=== PATIENT | female | born 1965 | race Caucasian/White ===

== ENCOUNTER 2018-07-31 17:37 | Emergency (ER) | payer SELFPAY ==
--- NOTE | 2018-07-31 18:34 | ER Document Report ---
ED Medical Screen (RME) - General Chief Complaint: Vaginal Discharge Stated Complaint: VAGINAL DISCOMFORT Time Seen by Provider: 07/31/18 18:26 Notes: 53-year-old female with lupus, fibromyalgia, hypothyroidism presents emergency department chief complaint of female issues x2 months. She states that she has had a foul order from her vagina with no abnormal discharge or abdominal pain. No fevers. She does complain of urinary urgency and frequency but no dysuria. Denies flank pain. Is sexually active. Last menstrual period 10 years ago. I have greeted and performed a rapid initial assessment of this patient. A comprehensive ED assessment and evaluation of the patient, analysis of test results and completion of medical decision making process will be conducted by an additional ED providers. TRAVEL OUTSIDE OF THE [place] IN LAST 30 DAYS: No - Related Data Allergies/Adverse Reactions: clindamycin Allergy (Verified 07/31/18 17:38) Past Medical History - Social History Frequency of alcohol use: None Drug Abuse: None Renal/ Medical History: Denies: Hx Peritoneal Dialysis Psychiatric Medical History: Reports: Hx Bipolar Disorder Past Surgical History: Reports: Hx Cholecystectomy, Hx Tonsillectomy, Hx Tubal Ligation Physical Exam - Vital signs Vitals: Temp Pulse Resp BP Pulse Ox 98 F 91 18 116/68 95 07/31/18 17:39 07/31/18 17:39 07/31/18 17:39 07/31/18 17:39 07/31/18 17:39 Course - Vital Signs Vital signs: Temp Pulse Resp BP Pulse Ox 98 F 91 18 116/68 95 07/31/18 17:39 07/31/18 17:39 07/31/18 17:39 07/31/18 17:39 07/31/18 17:39
[2018-07-31 19:11] LABS: APPEARANCE,URINE SLIGHTLY-CLOUDY; BILIRUBIN,URINE NEGATIVE (NEGATIVE); COLOR,URINE YELLOW; GLUCOSE, URINE NEGATIVE (NEGATIVE); KETONES,URINE NEGATIVE (NEGATIVE); LEUKOCYTE ESTERASE,URINE TRACE (NEGATIVE); NITRITE,URINE NEGATIVE (NEGATIVE); PROTEIN,URINE NEGATIVE (NEGATIVE); URINE SPECIFIC GRAVITY 1.014; UROBILINOGEN,URINE NEGATIVE mg/dL (<2.0)
--- NOTE | 2018-07-31 20:20 | ER Document Report ---
ED General - General Chief Complaint: Vaginal Discharge Stated Complaint: VAGINAL DISCOMFORT Time Seen by Provider: 07/31/18 18:26 Notes: Patient is a 53-year-old female who presents emergency department with a chief complaint of vaginal discharge. She states that she has had vaginal discharge for the past 2 months. She says the discharge really does not bother her, but the odor does. States that it smells like "rotten eggs." She is sexually active and states she is monogamous. She states her partner is monogamous. Patient states that she sometimes gets these infections after she shaves. She did currently shave. Patient states that she went into early menopause about 12 years ago due to stress. Past medical history includes hypothyroidism, lupus, fibromyalgia, and bipolar disorder. States she is currently taking her medications as prescribed. She has not recently been on any antibiotics. Denies any abdominal pain, dysuria, dyspareunia, or any other symptoms. TRAVEL OUTSIDE OF THE [place] IN LAST 30 DAYS: No - Related Data Allergies/Adverse Reactions: clindamycin Allergy (Verified 07/31/18 17:38) Past Medical History - Social History Smoking Status: Current Every Day Smoker Frequency of alcohol use: None Drug Abuse: None Family History: Reviewed & Not Pertinent Patient has suicidal ideation: No Patient has homicidal ideation: No Renal/ Medical History: Denies: Hx Peritoneal Dialysis Psychiatric Medical History: Reports: Hx Bipolar Disorder Past Surgical History: Reports: Hx Cholecystectomy, Hx Tonsillectomy, Hx Tubal Ligation Review of Systems - Review of Systems Notes: REVIEW OF SYSTEMS: CONSTITUTIONAL : Denies recent illness. Denies recent unintentional weight loss. Denies fever, chills, or sweats. EENT: Denies eye, ear, throat, or mouth pain, discharge, or symptoms. Denies nasal or sinus congestion. CARDIOVASCULAR: Denies chest pain. RESPIRATORY: Denies shortness of breath, cough, congestion, difficulty breathing, or wheezing. GASTROINTESTINAL: Denies nausea, vomiting, and diarrhea. Denies abdominal pain. Denies constipation. Last BM: GENITOURINARY: Denies difficulty urinating, burning, blood in urine, urgency or frequency. FEMALE GENITOURINARY: See HPI MUSCULOSKELETAL: Denies neck and back pain. Denies joint pain or swelling. SKIN: Denies rash, itchiness, or lesions HEMATOLOGIC : Denies easy bruising or bleeding. LYMPHATIC: Denies swollen, painful, enlarged glands. NEUROLOGICAL: Denies no numbness or tingling denies weakness. Denies headache. Denies altered mental status. Denies alteration in speech. PSYCHIATRIC: Denies stress, anxiety, alteration in sleep patterns, or depression. All other systems reviewed and negative. Physical Exam - Vital signs Vitals: Temp Pulse Resp BP Pulse Ox 98 F 91 18 116/68 95 07/31/18 17:39 07/31/18 17:39 07/31/18 17:39 07/31/18 17:39 07/31/18 17:39 - Notes Notes: PHYSICAL EXAMINATION: GENERAL: Appears well, healthy, well-nourished, no acute distress. HEAD: Normocephalic, atraumatic. EYES: PERRL, conjunctiva normal, all extraocular movements intact, sclera nonicteric ENT: Moist mucous membranes. NECK: Supple, no noticeable swelling, redness, rash. Normal range of motion. LUNGS: Equal breath sounds bilaterally and clear to auscultation. No wheezes rales or rhonchi. CARDIOVASCULAR: S1-S2, regular rate, regular rhythm. Radial pulses 2+, normal. ABDOMEN: Normoactive bowel sounds. Soft, nontender, no guarding, no rebound tenderness, and no masses palpated. EXTREMITIES: Normal strength and range of motion, no pitting or edema. No cyanosis. NEUROLOGICAL: Moves all extremities upon command. Strength 5/5 in all extremities. PSYCH: Tearful, appears anxious. SKIN: Warm, dry. No rash, lesions, ulcerations noted. Normal skin turgor. 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 Course - Re-evaluation Re-evalutation: 07/31/18 20:40 Pelvic exam done with my read, PCT at bedside. Patient did have foul odor and cervical motion tenderness. She will be sent for a transvaginal ultrasound to rule out tubo-ovarian abscess. Her urinalysis is unremarkable. Wet mount was sent. Folliculitis noted from patient shaving. A very low suspicion for appendicitis, ectopic , or any life-threatening etiology at this time. 07/31/18 21:40 Patient's ultrasound is negative for a tubo-ovarian abscess. She will be started on doxycycline and Flagyl for pelvic inflammatory disease from bacterial vaginosis. I discussed this with the patient. Follow-up precautions were given. Verbal discharge instructions were given to the patient. They verbalized understanding. They are stable for discharge. - Vital Signs Vital signs: Temp Pulse Resp BP Pulse Ox 97.5 F 78 18 117/63 100 07/31/18 22:07 07/31/18 22:07 07/31/18 22:07 07/31/18 22:07 07/31/18 22:07 - Laboratory Laboratory results interpreted by me: 07/31/18 18:50 Ur Leukocyte Esterase TRACE H Discharge - Discharge Clinical Impression: Bacterial vaginosis, Pelvic inflammatory disease Condition: Stable Disposition: HOME, SELF-CARE Additional Instructions: You are seen today in the emergency department for vaginal discharge. You have bacterial vaginosis and pelvic inflammatory disease. You are being placed on antibiotics. Please finish all your antibiotics as prescribed. Follow-up with your primary care provider as needed. If you develop a fever, pelvic pain, or have any symptoms that are worrisome to you, return to the emergency department. Prescriptions: Doxycycline Hyclate 100 mg PO BID #28 capsule Metronidazole [Flagyl 500 mg Tablet] 500 mg PO Q6H #28 tablet
[2018-07-31 20:47] LABS: BACTERIA (WET MOUNT) 3+ BACTERIA SEEN; EPITHELIALS (WET MOUNT) 4+ EPITHELIALS SEEN; RBCS (WET MOUNT) NO RBCS SEEN; T.VAGINALIS (WET MOUNT) NO TRICHOMONAS SEEN; WBCS (WET MOUNT) 1+ WBCS SEEN; YEAST (WET MOUNT) NO YEAST SEEN
[2018-07-31 21:23] LABS: CHLAM PCR NOT DETECTED (NOT DETECT)
--- NOTE | 2018-07-31 21:36 | RADIOLOGY REPORT (SQ) ---
EXAM DESCRIPTION: U/S NON OB PEL TV W/DOPPLER RadLex: US PELVIS TRANSVAGINAL CLINICAL HISTORY: 53 years Female; pelvic pain; vaginal discharge TECHNIQUE: Transabdominal and endovaginal pelvic ultrasound was performed. COMPARISON: None. FINDINGS: Uterus: 5.9 x 2.9 x 3.9 cm, with 5 mm endometrial stripe. No uterine masses. Right ovary: Could not be visualized using transabdominal or transvaginal technique. Left ovary: Could not be visualized using transabdominal or transvaginal technique. No free fluid IMPRESSION: 1. Normal uterus. 2. Ovaries could not be visualized.
[2018-07-31] MEDS ORDERED: DOXYCYCLINE HYCLATE 100 MG TABLET PO ONE (21:43)
[2018-07-31] MEDS ORDERED: METRONIDAZOLE 500 MG TABLET PO ONE (21:43)
[2018-07-31 22:08] VITALS: BP 117/63
== END 2018-07-31 22:10 | disposition home or self-care (01) ==
LOC: ER 17:37
DX: N73.9 Female pelvic inflammatory disease, unspecified (principal); N76.0 Acute vaginitis; B96.89 Other specified bacterial agents as the cause of diseases classified elsewhere; L73.9 Follicular disorder, unspecified; F17.200 Nicotine dependence, unspecified, uncomplicated; Z88.1 Allergy status to other antibiotic agents
CPT/HCPCS: 76830; 81001; 81025; 87210; 87491; 87591; 93976; 99284

== ENCOUNTER 2018-08-15 15:34 | Emergency (ER) | payer SELFPAY ==
[2018-08-15 16:53] LABS: ABSOLUTE BASOPHILS # (AUTO) 0.1 10^3/uL (0.0-0.2); ABSOLUTE EOSINOPHILS # (AUTO) 0.2 10^3/uL (0.0-0.6); ABSOLUTE LYMPHOCYTES (AUTO) 1.9 10^3/uL (0.5-4.7); ABSOLUTE MONOCYTES (AUTO) 0.8 10^3/uL (0.1-1.4); ABSOLUTE NEUT (AUTO) 2.5 10^3/uL (1.7-8.2); EOSINOPHILS % (AUTO) 3.4 % (0-6); HEMATOCRIT 39.6 % (36.0-47.0); HEMOGLOBIN 13.3 g/dL (12.0-15.5); LYMPHOCYTES % (AUTO) 34.7 % (13-45); MEAN CORPUSCULAR HEMOGLOBIN 29.9 pg (27.0-33.4); MEAN CORPUSCULAR HGB CONC 33.6 g/dL (32.0-36.0); MEAN CORPUSCULAR VOLUME 89 fl (80-97); MONOCYTES % (AUTO) 14.3 % (3-13); PLATELET COUNT 260 10^3/uL (150-450); RED BLOOD COUNT 4.45 10^6/uL (3.72-5.28); RED CELL DISTRIBUTION WIDTH 14.4 % (11.5-14.0); SEGMENTED NEUTROPHILS % (AUTO) 46.6 % (42-78); TOTAL CELLS COUNTED % (AUTO) 100 %; WHITE BLOOD COUNT 5.3 10^3/uL (4.0-10.5)
[2018-08-15 17:13] LABS: ALANINE AMINOTRANSFERASE 28 U/L (9-52); ALBUMIN 3.6 g/dL (3.5-5.0); ALKALINE PHOSPHATASE 48 U/L (38-126); ANION GAP 5 (5-19); ASPARTATE AMINO TRANSFERASE 24 U/L (14-36); BILIRUBIN,DIRECT 0.2 mg/dL (0.0-0.4); BILIRUBIN,TOTAL 0.3 mg/dL (0.2-1.3); BLOOD UREA NITROGEN 11 mg/dL (7-20); CALCIUM 9.5 mg/dL (8.4-10.2); CARBON DIOXIDE 27 mmol/L (22-30); CHLORIDE 108 mmol/L (98-107); GLUCOSE 98 mg/dL (75-110); POTASSIUM 3.6 mmol/L (3.6-5.0); SODIUM 140.2 mmol/L (137-145); TOTAL PROTEIN 5.9 g/dL (6.3-8.2)
[2018-08-15 17:15] LABS: ACETAMINOPHEN < 10 ug/mL (10-30); ALCOHOL < 10 mg/dL (NONE DETECTED); SALICYLATE < 1.0 mg/dL (2.0-20.0)
[2018-08-15 17:34] LABS: APPEARANCE,URINE HAZY; BILIRUBIN,URINE SMALL (NEGATIVE); COLOR,URINE AMBER; GLUCOSE, URINE NEGATIVE (NEGATIVE); KETONES,URINE NEGATIVE (NEGATIVE); PROTEIN,URINE 30 mg/dL (NEGATIVE)
[2018-08-15 17:35] LABS: LEUKOCYTE ESTERASE,URINE TRACE (NEGATIVE); NITRITE,URINE NEGATIVE (NEGATIVE); UROBILINOGEN,URINE NEGATIVE mg/dL (<2.0)
[2018-08-15 17:50] LABS: URINE AMPHETAMINES SCREEN NEGATIVE; URINE BARBITURATES SCREEN NEGATIVE; URINE BENZODIAZEPINES SCREEN NEGATIVE; URINE COCAINE SCREEN NEGATIVE; URINE MARIJUANA (THC) SCREEN UNCONFIRMED POSITIVE; URINE METHADONE SCREEN NEGATIVE; URINE PHENCYCLIDINE SCREEN NEGATIVE
--- NOTE | 2018-08-15 18:24 | RADIOLOGY REPORT (SQ) ---
EXAM DESCRIPTION: CT HEAD WITHOUT COMPLETED DATE/TIME: 08/15/2018 6:00 pm REASON FOR STUDY: ams COMPARISON: None. TECHNIQUE: Axial images acquired through the brain without intravenous contrast. Images reviewed wit h bone, brain and subdural windows. Images stored on PACS. All CT scanners at this facility use dose modulation, iterative reconstruction, and/or weight based d osing when appropriate to reduce radiation dose to as low as reasonably achievable (ALARA). [facility]: Dose Right [facility]: CareDose [facility]: Dose Right [facility]: Teradose 4D [facility]: Smart [employer] RADIATION DOSE: CT Rad equipment meets quality standard of care and radiation dose reduction techniq ues were employed. CTDIvol: 53.2 mGy. DLP: 1017 mGy-cm.. LIMITATIONS: Mild motion. FINDINGS: VENTRICLES: Normal size and contour. CEREBRUM: No masses. No hemorrhage. No midline shift. Age appropriate white matter. No evidence for a cute infarction. CEREBELLUM: No masses. No hemorrhage. No alteration of density. No evidence for acute infarction. EXTRA-AXIAL SPACES: No fluid collections. ORBITS AND GLOBE: No intra- or extraconal masses. Normal contour of globe without masses. CALVARIUM: No fracture. PARANASAL SINUSES: No fluid or mucosal thickening. SOFT TISSUES: No mass or hematoma. OTHER: No other significant finding. IMPRESSION: NO ACUTE INTRACRANIAL FINDINGS. EVIDENCE OF ACUTE STROKE: NO. TECHNICAL DOCUMENTATION: JOB ID: [id number] Quality ID # [id number]: Final reports with documentation of one or more dose reduction techniques (e.g., Au tomated exposure control, adjustment of the mA and/or kV according to patient size, use of iterative reconstruction technique) 2010 [employer]- All Rights Reserved Reading location - IP/workstation name: [email or web address]
--- NOTE | 2018-08-15 19:03 | ER Document Report ---
Addendum entered and electronically signed by PEYTON PATEL MD 08/16/18 13:23: Discharge - Discharge Clinical Impression: Confusion, Hallucination, Hx of bipolar disorder, Nonadherence to medication Altered mental status Qualifiers: Altered mental status type: unspecified Qualified Code(s): R41.82 - Altered mental status, unspecified Condition: Stable Disposition: HOME, SELF-CARE Additional Instructions: You have been evaluated by both medical and behavioral health providers while in the emergency department. You have been cleared from both acute medical and psychiatric services. It is felt your not having access to your medications (mental health and medical) for the last 3-4 days may be related to altered/confused state. 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 You were provided with a copy of the information they faxed. You should get these medications and start taking them immediately. You have also been provided with information for free to low cost medical services in [facility]. Altered Mental Status An altered mental status is a change in the normal functioning of the brain. This alteration of function can range from minor decreased brain function with some forgetfulness and confusion to complete loss of consciousness and coma. There are many possible causes of an altered mental status and include brain injuries such as trauma or strokes, problems with oxygen supply to the brain, fever and infections of the brain and/or elsewhere in the body, metabolic abnormalities such as low or high blood sugar, overdoses or excessive medication ingestion, and mental and psychiatric illnesses. Sometimes the altered mental status resolves and a definite cause is not determined. If a cause for your altered mental status was found, it has likely been corrected. Your evaluation has not shown any condition that requires that you be admitted to the hospital. It is believed that you are safe to leave and return to your home. If you have a return of your symptoms, you should return for re-evaluation. Hallucinations You seem to be having hallucinations. Hallucinations are seeing, hearing, or feeling things that don't exist. These symptoms commonly occur with drug abuse and schizophrenia. Drugs like PCP, LSD, MDMA, peyote, and "psychedelic mushrooms" can cause frightening hallucinations. Users of methamphetamine or crack cocaine often see and feel bugs crawling on their skin. Patients with schizophrenia may hear voices that no one else can hear. The delusions of schizophrenia often involve conspiracies or relationships that are not real. When symptoms are due to drug abuse, the mental state usually improves as the drug wears off. Someone you trust should be with you until you are better, to protect you and calm your fears. Tranquilizer medicine is helpful at controlling hallucinations, anxiety, and deluded thoughts. Get a proper diet and enough sleep. Most patients do very well when they get proper medical treatment and social support. You should return at once if your symptoms get worse, if you are having suicidal thoughts or thoughts about hurting others, or if you feel that you are in danger. Bipolar Disorder Bipolar disorder is also called manic-depressive disorder. Depression alternates with brain hyperactivity called rodrick. Each phase lasts from several days to a few weeks. We don't know exactly what causes bipolar disorder, but it's treatable. During the "manic phase," you may feel elated and energetic. You may have racing thoughts, rapid speech, increased activity, and grandiose ideas. During this time, you may not realize how poor your judgment is. Inappropriate spending, drug abuse, excessive alcohol use, marriage problems, and irresponsible sexual behavior are common during the manic phase. During the "depressive phase," you might feel depressed, guilty, worthless, fatigued, and unable to concentrate. You might have thoughts of suicide. Good treatments are available for bipolar disorder. Herman is a classic drug for bipolar disorder, and is still often useful. If the manic phase is very mild, an antidepressant alone can be prescribed. If the manic phase is very severe, an antipsychotic medicine (such as Haldol) may be needed. The treatment must be matched to your symptoms, so it's important to work closely with your psychiatric care provider. Contact your physician, the hospital emergency center, crisis line, or your counsellor if you are losing control or having self-destructive thoughts. 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 You need to restart these medications immediately and take them as prescribed. You should follow up with [facility] a free/low cost medical facility that serves [facility]. They may be able to link you to behavioral health services. There is an agency in [place] Called [facility] for outpatient mental health services and have been provided contact information. You have been provided the [facility] Mobile Crisis number for crisis, talk therapy and linkage to other services/supports. If your symptoms persist or worsen contact your physician immediately, utilize mobile crisis or return to the emergency department. Prescriptions: Divalproex Sodium [Depakote] 1,500 mg PO QHS #30 tablet. Levothyroxine Sodium 50 mcg PO DAILY #30 tablet Sertraline HCl [Zoloft] 100 mg PO DAILY #30 tablet Referrals: [facility] [Outside] - Follow up as needed (You haver contact information for [facility] (medical) and [facility] (mental health).) Addendum entered and electronically signed by PEYTON PATEL MD 08/16/18 12:04: Discharge - Discharge Clinical Impression: Confusion, Hallucination, Hx of bipolar disorder, Nonadherence to medication Altered mental status Qualifiers: Altered mental status type: unspecified Qualified Code(s): R41.82 - Altered mental status, unspecified Condition: Stable Disposition: HOME, SELF-CARE Additional Instructions: You have been evaluated by both medical and behavioral health providers while in the emergency department. You have been cleared from both acute medical and psychiatric services. It is felt your not having access to your medications ([facility] and medical) for the last 3-4 days may be related to altered/confused state. 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 You were provided with a copy of the information they faxed. You should get these medications and start taking them immediately. You have also been provided with information for free to low cost medical services in [facility]. Altered Mental Status An altered mental status is a change in the normal functioning of the brain. This alteration of function can range from minor decreased brain function with some forgetfulness and confusion to complete loss of consciousness and coma. There are many possible causes of an altered mental status and include brain injuries such as trauma or strokes, problems with oxygen supply to the brain, fever and infections of the brain and/or elsewhere in the body, metabolic a bnormalities such as low or high blood sugar, overdoses or excessive medication ingestion, and mental and psychiatric illnesses. Sometimes the altered mental status resolves and a definite cause is not determined. If a cause for your altered mental status was found, it has likely been corrected. Your evaluation has not shown any condition that requires that you be admitted to the hospital. It is believed that you are safe to leave and return to your home. If you have a return of your symptoms, you should return for re-evaluation. Hallucinations You seem to be having hallucinations. Hallucinations are seeing, hearing, or feeling things that don't exist. These symptoms commonly occur with drug abuse and schizophrenia. Drugs like PCP, LSD, MDMA, peyote, and "psychedelic mushrooms" can cause frightening hallucinations. Users of methamphetamine or crack cocaine often see and feel bugs crawling on their skin. Patients with schizophrenia may hear voices that no one else can hear. The delusions of schizophrenia often involve conspiracies or relationships that are not real. When symptoms are due to drug abuse, the mental state usually improves as the drug wears off. Someone you trust should be with you until you are better, to protect you and calm your fears. Tranquilizer medicine is helpful at controlling hallucinations, anxiety, an d deluded thoughts. Get a proper diet and enough sleep. Most patients do very well when they get proper medical treatment and social support. You should return at once if your symptoms get worse, if you are having suicidal thoughts or thoughts about hurting others, or if you feel that you are in danger. Bipolar Disorder Bipolar disorder is also called manic-depressive disorder. Depression alternates with brain hyperactivity called rodrick. Each phase lasts from several days to a few weeks. We don't know exactly what causes bipolar disorder, but it's treatable. During the "manic phase," you may feel elated and energetic. You may have racing thoughts, rapid speech, increased activity, and grandiose ideas. During this time, you may not realize how poor your judgment is. Inappropriate spending, drug abuse, excessive alcohol use, marriage problems, and irresponsible sexual behavior are common during the manic phase. During the "depressive phase," you might feel depressed, guilty, worthless, fatigued, and unable to concentrate. You might have thoughts of suicide. Good treatments are available for bipolar disorder. Herman is a classic drug for bipolar disorder, and is still often useful. If the manic phase is very mild, an antidepressant alone can be prescribed. If the manic phase is very severe, an antipsychotic medicine (such as Haldol) may be needed. The treatment must be matched to your symptoms, so it's important to work closely with your psychiatric care provider. Contact your physician, the hospital emergency center, crisis line, or your counsellor if you are losing control or having self-destructive thoughts. 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 You need to restart these medications immediately and take them as prescribed. You should follow up with [facility] a free/low cost medical facility that serves [facility]. They may be able to link you to behavioral health services. There is an agency in [place] Called [facility] for outpatient mental health services and have been provided contact information. You have been provided the [facility] Mobile Crisis number for crisis, talk therapy and linkage to other services/supports. If your symptoms persist or worsen contact your physician immediately, utilize mobile crisis or return to the emergency department. Referrals: [facility] [Outside] - Follow up as needed (You haver contact information for [facility] (medical) and [facility] (mental health).) Addendum entered and electronically signed by SAMIA LABOY LPC 08/16/18 11:54: Discharge - Discharge Clinical Impression: Confusion, Hallucination, Hx of bipolar disorder, Nonadherence to medication Altered mental status Qualifiers: Altered mental status type: unspecified Qualified Code(s): R41.82 - Altered mental status, unspecified Condition: Stable Disposition: HOME, SELF-CARE Additional Instructions: You have been evaluated by both medical and behavioral health providers while in the emergency department. You have been cleared from both acute medical and psychiatric services. It is felt your not having access to your medications (mental health and medical) for the last 3-4 days may be related to altered/confused state. 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 You were provided with a copy of the information they faxed. You should get these medications and start taking them immediately. You have also been provided with information for free to low cost medical services in [facility]. Altered Mental Status An altered mental status is a change in the normal functioning of the brain. This alteration of function can range from minor decreased brain function with some forgetfulness and confusion to complete loss of consciousness and coma. There are many possible causes of an altered mental status and include brain injuries such as trauma or strokes, problems with oxygen supply to the brain, fever and infections of the brain and/or elsewhere in the body, metabolic abnormalities such as low or high blood sugar, overdoses or excessive medication ingestion, and mental and psychiatric illnesses. Sometimes the altered mental status resolves and a definite cause is not determined. If a cause for your altered mental status was found, it has likely been corrected. Your evaluation has not shown any condition that requires that you be admitted to the hospital. It is believed that you are safe to leave and return to your home. If you have a return of your symptoms, you should return for re-evaluation. Hallucinations You seem to be having hallucinations. Hallucinations are seeing, hearing, or feeling things that don't exist. These symptoms commonly occur with drug abuse and schizophrenia. Drugs like PCP, LSD, MDMA, peyote, and "psychedelic mushrooms" can cause frightening hallucinations. Users of methamphetamine or crack cocaine often see and feel bugs crawling on their skin. Patients with schizophrenia may hear voices that no one else can hear. The delusions of schizophrenia often involve conspiracies or relationships that are not real. When symptoms are due to drug abuse, the mental state usually improves as the drug wears off. Someone you trust should be with you until you are better, to protect you and calm your fears. Tranquilizer medicine is helpful at controlling hallucinations, anxiety, and deluded thoughts. Get a proper diet and enough sleep. Most patients do very well when they get proper medical treatment and social support. You should return at once if your symptoms get worse, if you are having suicidal thoughts or thoughts about hurting others, or if you feel that you are in danger. Bipolar Disorder Bipolar disorder is also called manic-depressive disorder. Depression alternates with brain hyperactivity called rodrick. Each phase lasts from several days to a few weeks. We don't know exactly what causes bipolar disorder, but it's treatable. During the "manic phase," you may feel elated and energetic. You may have racing thoughts, rapid speech, increased activity, and grandiose ideas. During this time, you may not realize how poor your judgment is. Inappropriate spending, drug abuse, excessive alcohol use, marriage problems, and irresponsible sexual behavior are common during the manic phase. During the "depressive phase," you might feel depressed, guilty, worthless, fatigued, and unable to concentrate. You might have thoughts of suicide. Good treatments are available for bipolar disorder. Herman is a classic drug for bipolar disorder, and is still often useful. If the manic phase is very mild, an antidepressant alone can be prescribed. If the manic phase is very severe, an antipsychotic medicine (such as Haldol) may be needed. The treatment must be matched to your symptoms, so it's important to work closely with your psychiatric care provider. Contact your physician, the hospital emergency center, crisis line, or your counsellor if you are losing control or having self-destructive thoughts. 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 You need to restart these medications immediately and take them as prescribed. You should follow up with [facility] a free/low cost medical facility that serves [facility]. They may be able to link you to behavioral health services. There is an agency in [place] Called [facility] for outpatient mental health services and have been provided contact information. You have been provided the [facility] Mobile Crisis number for crisis, talk therapy and linkage to other services/supports. If your symptoms persist or worsen contact your physician immediately, utilize mobile crisis or return to the emergency department. Referrals: [facility] [Outside] - Follow up as needed (You haver contact information for [facility] (medical) and [facility] (mental health).) Original Note: ED General - General Chief Complaint: Psych Problem Stated Complaint: WITHDRAWALS Time Seen by Provider: 08/15/18 16:03 Mode of Arrival: Medic Information source: Patient, Friend, Emergency Med Personnel Notes: 53-year-old female with fibromyalgia, lupus, seizure disorder, bipolar disorder presents via EMS after her significant other found her in the bathtub unresponsive. Patient's boyfriend states that he found her in the tub and she was difficult to arouse and then did not recognize him. He states for appro ximately 1 week she has been acting very strangely and having visual hallucinations. Patient has been persistently asking where she is. Patient's boyfriend states that they recently moved here from [place] and have been unable to acquire any of her medications. He states that currently they are homeless and living in a tent in his mother's yard. Patient is alert, awake but alert and oriented x2. She has no physical complaints. She denies drug and alcohol use. TRAVEL OUTSIDE OF THE [place] IN LAST 30 DAYS: No - HPI Onset: Other Onset/Duration: Gradual, Worse Quality of pain: No pain Severity: None Associated symptoms: None. denies: Body/muscle aches, Chest pain, Fever, Headache, Nausea, Vomiting, Shortness of breath, Weakness Exacerbated by: Denies Relieved by: Denies Similar symptoms previously: No Recently seen / treated by doctor: No - Related Data Allergies/Adverse Reactions: clindamycin Allergy (Verified 07/31/18 17:38) Past Medical History - General Information source: Patient, Friend, Emergency Med Personnel - Social History Smoking Status: Current Every Day Smoker Cigarette use (# per day): Yes - 10 Chew tobacco use (# tins/day): No Smoking Education Provided: Yes - Smoking cessation counseling was provided for 4 minutes at the bedside Frequency of alcohol use: None Drug Abuse: None Lives with: Homeless Family History: Reviewed & Not Pertinent Patient has suicidal ideation: No Patient has homicidal ideation: No Neurological Medical History: Reports: Hx Seizures Renal/ Medical History: Denies: Hx Peritoneal Dialysis Musculoskeletal Medical History: Reports Hx Fibromyalgia Psychiatric Medical History: Reports: Hx Bipolar Disorder Past Surgical History: Reports: Hx Cholecystectomy, Hx Tonsillectomy, Hx Tubal Ligation Review of Systems - Review of Systems Notes: REVIEW OF SYSTEMS: CONSTITUTIONAL : Denies fever, chills, or sweats. Denies recent illness. Denies weight loss, recent hospitalizations. EENT: Denies visual changes, eye pain. Denies sore throat, oral lesions, difficulty swallowing. CARDIOVASCULAR: Denies chest pain. Denies palpitations. Denies lower extremity edema. RESPIRATORY: Denies cough. Denies shortness of breath, wheezing. GASTROINTESTINAL: Denies abdominal pain or distention. Denies nausea, vomiting, or diarrhea. Denies blood in vomitus, stools, or per rectum. Denies black, tarry stools. Denies constipation. GENITOURINARY: Denies difficulty urinating, painful urination, frequency, blood in urine, or vaginal discharge. MUSCULOSKELETAL: Denies back or neck pain or stiffness. Denies joint pain or swelling. SKIN: Denies rash, lesions or sores. HEMATOLOGIC : Denies easy bruising or bleeding. LYMPHATIC: Denies swollen glands. NEUROLOGICAL: Denies confusion or altered mental status. Denies loss of consciousness. Denies dizziness or lightheadedness. Denies headache. Denies weakness or paralysis. Denies problems difficulty with ambulation, slurred speech. Denies sensory loss, numbness, or tingling. Denies seizures. PSYCHIATRIC: Denies anxiety or stress. Denies depression, suicidal ideation, or homicidal ideation. Denies visual or auditory hallucinations. Physical Exam - Vital signs Vitals: Temp Pulse Resp BP Pulse Ox 98.4 F 57 L 15 103/59 L 98 08/15/18 17:12 08/15/18 17:12 08/15/18 17:12 08/15/18 17:12 08/15/18 17:12 - Notes Notes: PHYSICAL EXAMINATION: GENERAL: Well-appearing, well-nourished and in no acute distress. HEAD: Atraumatic, normocephalic. EYES: Pupils equal round and reactive to light, extraocular movements intact, conjunctiva are normal. ENT: Nares patent, oropharynx clear without exudates. Moist mucous membranes. NECK: Normal range of motion, supple without lymphadenopathy LUNGS: Breath sounds clear to auscultation bilaterally and equal. No wheezes rales or rhonchi. HEART: Regular rate and rhythm without murmurs ABDOMEN: Soft, nontender, nondistended abdomen. No guarding, no rebound. No masses appreciated. Female : deferred Musculoskeletal: Normal range of motion, no pitting or edema. No cyanosis. NEUROLOGICAL: Cranial nerves grossly intact. Slowed speech, normal gait. Normal sensory, motor exams. GCS 15 PSYCH: Flat affect, perseverating SKIN: Warm, Dry, normal turgor, no rashes or lesions noted. Course - Re-evaluation Re-evalutation: 08/15/18 20:49 Laboratory 08/15/18 08/15/18 08/15/18 16:30 16:30 16:30 WBC 5.3 RBC 4.45 Hgb 13.3 Hct 39.6 MCV 89 MCH 29.9 MCHC 33.6 RDW 14.4 H Plt Count 260 Seg Neutrophils % 46.6 Lymphocytes % 34.7 Monocytes % 14.3 H Eosinophils % 3.4 Basophils % 1.0 Absolute Neutrophils 2.5 Absolute Lymphocytes 1.9 Absolute Monocytes 0.8 Absolute Eosinophils 0.2 Absolute Basophils 0.1 Sodium 140.2 Potassium 3.6 Chloride 108 H Carbon Dioxide 27 Anion Gap 5 BUN 11 Creatinine 0.60 Est GFR ( Amer) > 60 Est GFR (Non-Af Amer) > 60 Glucose 98 Calcium 9.5 Total Bilirubin 0.3 Direct Bilirubin 0.2 Neonat Total Bilirubin Not Reportable Neonat Direct Bilirubin Not Reportable Neonat Indirect Bili Not Reportable AST 24 ALT 28 Alkaline Phosphatase 48 Total Protein 5.9 L Albumin 3.6 TSH 1.59 Free T4 1.47 Free T3 pg/mL 4.61 Urine Color Urine Appearance Urine pH Ur Specific [place] Urine Protein Urine Glucose (UA) Urine Ketones Urine Blood Urine Nitrite Urine Bilirubin Urine Urobilinogen Ur Leukocyte Esterase Urine WBC (Auto) Urine RBC (Auto) Urine Bacteria (Auto) Squamous Epi Cells Auto Urine Mucus (Auto) Urine Ascorbic Acid Salicylates < 1.0 L Urine Opiates Screen Urine Methadone Screen Acetaminophen < 10 L Ur Barbiturates Screen Ur Phencyclidine Scrn Ur Amphetamines Screen U Benzodiazepines Scrn Urine Cocaine Screen U Marijuana (THC) Screen Serum Alcohol < 10 08/15/18 08/15/18 16:53 16:53 WBC RBC Hgb Hct MCV MCH MCHC RDW Plt Count Seg Neutrophils % Lymphocytes % Monocytes % Eosinophils % Basophils % Absolute Neutrophils Absolute Lymphocytes Absolute Monocytes Absolute Eosinophils Absolute Basophils Sodium Potassium Chloride Carbon Dioxide Anion Gap BUN Creatinine Est GFR ( Amer) Est GFR (Non-Af Amer) Glucose Calcium Total Bilirubin Direct Bilirubin Neonat Total Bilirubin Neonat Direct Bilirubin Neonat Indirect Bili AST ALT Alkaline Phosphatase Total Protein Albumin TSH Free T4 Free T3 pg/mL Urine Color SHEILA Urine Appearance HAZY Urine pH 9.0 Ur Specific [place] 1.020 Urine Protein 30 H Urine Glucose (UA) NEGATIVE Urine Ketones NEGATIVE Urine Blood NEGATIVE Urine Nitrite NEGATIVE Urine Bilirubin SMALL H Urine Urobilinogen NEGATIVE Ur Leukocyte Esterase TRACE H Urine WBC (Auto) 3 Urine RBC (Auto) 1 Urine Bacteria (Auto) TRACE Squamous Epi Cells Auto 3 Urine Mucus (Auto) OCC Urine Ascorbic Acid NEGATIVE Salicylates Urine Opiates Screen NEGATIVE Urine Methadone Screen NEGATIVE Acetaminophen Ur Barbiturates Screen NEGATIVE Ur Phencyclidine Scrn NEGATIVE Ur Amphetamines Screen NEGATIVE U Benzodiazepines Scrn NEGATIVE Urine Cocaine Screen NEGATIVE U Marijuana (THC) Screen UNCONFIRMED POSITIVE Serum Alcohol Head CT 08/15/18 17:44 IMPRESSION: NO ACUTE INTRACRANIAL FINDINGS. EVIDENCE OF ACUTE STROKE: NO. Temp Pulse Resp BP Pulse Ox 98.4 F 57 L 15 103/59 L 98 08/15/18 17:12 08/15/18 17:12 08/15/18 17:12 08/15/18 17:12 08/15/18 17:12 53-year-old female presented via EMS after her boyfriend found her unresponsive in the bathtub. Boyfriend states the patient has been acting oddly for approximately 1 week. He states she has been confused, hallucinating and today she did not recognize him which prompted him to call EMS. Patient has recently moved here from [place] and is currently homeless and living in a tent and her boyfriend's mother's yard. She has been out of her psychiatric and seizure medications for approximately 2 weeks. There is a list attached to the chart w hich will require reconciliation by pharmacy. Patient will need to be seen by social work and behavioral health in the morning. 08/15/18 21:12 08/15/18 21:13 Provided medication list from June 11, 2018 include diclofenac 75 mg 1 tab twice daily, Depakote EC 500 mg, Lasix 20 mg daily, hydroxy chloride 200 mg 1 tab twice daily, levothyroxine 50 mcg 1 tab daily, Lyrica 225 mg 1 cap twice daily, orphenadrine 100 mg ER 1 tab twice daily, sertraline 100 mg 1 tab daily, trazodone 300 mg 1 tab at bed. - Vital Signs Vital signs: Temp Pulse Resp BP Pulse Ox 98.4 F 57 L 15 103/59 L 98 08/15/18 17:12 08/15/18 17:12 08/15/18 17:12 08/15/18 17:12 08/15/18 17:12 - Laboratory Result Diagrams: 08/15/18 16:30 08/15/18 16:30 Laboratory results interpreted by me: 08/15/18 08/15/18 08/15/18 16:30 16:30 16:53 RDW 14.4 H Monocytes % 14.3 H Chloride 108 H Total Protein 5.9 L Urine Protein 30 H Urine Bilirubin SMALL H Ur Leukocyte Esterase TRACE H Salicylates < 1.0 L Acetaminophen < 10 L - Diagnostic Test Radiology reviewed: Image reviewed, Reports reviewed - EKG Interpretation by Me EKG shows normal: Sinus rhythm Rate: Normal Rhythm: NSR When compared to previous EKG there are: Previous EKG unavailable Discharge - Discharge Clinical Impression: Confusion, Hallucination Altered mental status Qualifiers: Altered mental status type: unspecified Qualified Code(s): R41.82 - Altered mental status, unspecified Condition: Good Disposition: OTHER
[2018-08-15] MEDS ORDERED: DICLOFENAC SODIUM 50 MG TABLET.DR PO ONE ×2 (19:25→20:30)
[2018-08-15] MEDS ORDERED: SERTRALINE HCL 50 MG TABLET PO ONE (19:26)
[2018-08-15 20:17] LABS: FREE T3 4.61 pg/mL (2.77-5.27); FREE T4 (FREE THYROXINE) 1.47 ng/dL (0.78-2.19)
[2018-08-15 20:30] LABS: THYROID STIMULATING HORMONE 1.59 uIU/mL (0.47-4.68)
[2018-08-15] MEDS ORDERED: DIVALPROEX SODIUM 250 MG TABLET.DR PO SCH (22:00)
[2018-08-15] MEDS ORDERED: TRAZODONE HCL 50 MG TABLET PO SCH (22:00)
--- NOTE | 2018-08-15 23:54 | EKG REPORT ---
SEVERITY:- NORMAL ECG - SINUS RHYTHM : Confirmed by: Cedrick Hernandes 15-Aug-2018 23:52:42
[2018-08-16 13:40] VITALS: BP 106/57
[2018-08-16] MEDS ORDERED: LEVOTHYROXINE SODIUM 0.05 MG TABLET PO SCH (19:24)
[2018-08-16] MEDS ORDERED: PREGABALIN 100 MG CAPSULE PO SCH (19:26)
--- NOTE | 2018-08-17 06:12 | PSYCHOLOGICAL NOTE ---
Psych Note - Psych Note Date seen by psych provider: 08/16/18 Time seen by psych provider: 07:35 - Chart review at 0735. Evaluation from 911- 919. Psych Note: Presenting Problem: AMS, confusion, called EMS after he found her in bath tub unresponsive and then not recognizing him. , Nicole, at bedside. Patient and moved to [place] from [place] recently, she has numerous medical issues (Lupus, Thyroid issue) and mental health, has been off all medications for 3-4 days, they have been staying in a tent on 's mother's property, she has gone through [facility] to switch Medicaid from [place] to [place] which is not effective yet, she is not linked with any medical or MH providers in the area and they have not yet been able to get to the [facility] ([place], they reside in [facility]) to get refills [place] doctor sent. Patient more alert and oriented today. As the day went on she was more linear, oriented and able to carry on dialogue conversations. Both her and 's concern were obtaining her medications. ED SW and [facility] coordinated care since both consulted. ED SW provided information on [facility] (free/low cost medical clinic that serves [facility]). Encouraged patient and to go today or first thing in morning to see what they might be able to do to help with Lupus medications (Meng, even with [facility] $400 +). Contacted [facility] who faxed medication list over. Provided list to patient and , as well as put copy on physical chart. called his mother and pharmacy. Discovered medications would be expensive since Medicaid not processed yet. This clinician utilized [facility] for patient's listed medications and provided [facility] costs (typically the cheapest) for most. Was able to get attending ED Physician to agree on providing scripts for Zoloft, Depakote and Synthroid. Diangosis: Out of medications for 3-4 days Lupus Thyroid Issue 296.80 (F31.9) Unspecified Bipolar and Related Disorder by Hx Impression/Plan: Patient is cleared from acute psychiatric services. She denied SI/HI (these were never presenting concerns) and no observed psychosis. She was more alert, oriented, linear thinking and able to carrying on dialogue conversation. Patient and had recent move to [place] from [place], Medicaid not transferred yet, living arrangements are a tent, unable to obtain medications so had been out of all for 3-4 days (had Lupus and Thyroid issues so felt not all MH related). ED SW provided free clinic ([facility]) for [facility] and patient instructed to follow up there today or first thing tomorrow for possible assistance Lupus medications. ED Physician provided scripts for 2 MH medications and thyroid medication. List of medications [facility] had for patient provided which included their contact information. Provided [facility] prices ([facility]). Provided the local MH outpatient resource sheet for [facility]. Consulted with Dr. Clemente regarding the management and care of patient. ED Physician in agreement with recommendations.
== END 2018-08-16 13:47 | disposition home or self-care (01) ==
LOC: ER 15:34
DX: R41.82 Altered mental status, unspecified (principal); R44.3 Hallucinations, unspecified; F31.9 Bipolar disorder, unspecified; F17.210 Nicotine dependence, cigarettes, uncomplicated; Z91.14 Patient's other noncompliance with medication regimen; Z90.49 Acquired absence of other specified parts of digestive tract; Z98.51 Tubal ligation status; Z59.0 Homelessness
CPT/HCPCS: 93005; 99285; 36415; 84439; 80307 ×4; 84443; 85025; 80053; 81001; 84481; 70450; 93010; J3490